=== PATIENT | male | born 1990 | race Caucasian/White ===

== ENCOUNTER → 2022-02-07 | Outpatient (CLI) | payer BC | END | disposition home or self-care (01) | LOC: MRI 15:54 | PROVIDERS: ATTEND Psychiatry & Neurology Neurology | DX: R90.82 White matter disease, unspecified (principal); I67.82 Cerebral ischemia; R51.9 Headache, unspecified; M54.2 Cervicalgia | CPT/HCPCS: 70551; 72141 ==